=== PATIENT | female | born 1965 | race Caucasian/White ===

== ENCOUNTER 2019-05-08 01:01 | Inpatient (IN) | payer BC, OTHER ==
[2019-05-08] MEDS: SOD CHLORIDE 0.9% 1,000 ML IV ×3 (02:30→15:29)
[2019-05-08] MEDS: ONDANSETRON 4 MG INJ IV ×3 (02:33→23:57)
[2019-05-08] MEDS: KETOROLAC 15 MG INJ IV (02:33)
[2019-05-08 02:41] LABS: ADD MAN DIFF? NO
[2019-05-08 02:45] LABS: WHITE BLOOD COUNT 9.6 10^3/ul (4.8-10.8)
[2019-05-08 02:45] LABS: BASOPHILS % 0.2 % (0.0-2.0); EOSINOPHILS # 0.1 10^3/ul (0.0-0.5); EOSINOPHILS % 0.8 % (0.0-7.0); HEMATOCRIT 39.2 % (37.0-47.0); HEMOGLOBIN 12.8 g/dl (12.0-16.0); LYMPHOCYTES # 1.9 10^3/ul (0.8-2.9); MEAN CORPUSCULAR HEMOGLOBIN 31.6 pg (29.0-33.0); MEAN CORPUSCULAR HGB CONC 32.7 g/dl (32.0-37.0); MEAN CORPUSCULAR VOLUME 96.8 fl (82.0-101.0); MEAN PLATELET VOLUME 8.6 fl (7.4-10.4); MONOCYTE # 0.4 10^3/ul (0.3-0.9); MONOCYTES % 4.2 % (0.0-11.0); NEUTROPHIL # 7.1 10^3/ul (1.6-7.5); NEUTROPHILS % 74.4 % (39.0-77.0); PLATELET COUNT 271 10^3/UL (140-415); RED BLOOD COUNT 4.05 10^6/ul (4.20-5.40); RED CELL DISTRIBUTION WIDTH 13.4 % (11.5-14.5)
[2019-05-08 03:00] LABS: ALANINE AMINOTRANSFERASE 21 IU/L (13-69); ALBUMIN 4.5 g/dl (3.3-4.9); ALBUMIN/GLOBULIN RATIO 1.32; ALKALINE PHOSPHATASE 91 IU/L (42-121); ANION GAP 9 (5-13); ASPARTATE AMINO TRANSFERASE 28 IU/L (15-46); BILIRUBIN,INDIRECT 0.2 mg/dl (0-1.1); BILIRUBIN,TOTAL 0.2 mg/dl (0.2-1.3); BLOOD UREA NITROGEN 28 mg/dl (7-20); CALCIUM 9.4 mg/dl (8.4-10.2); CARBON DIOXIDE 25 mmol/L (21-31); CHLORIDE 107 mmol/L (97-110); Estimated GFR > 60 mL/min (>60); GLUCOSE 125 mg/dl (70-220); LIPASE 134 U/L (23-300); POTASSIUM 3.5 mmol/L (3.5-5.1); SODIUM 141 mmol/L (135-144); TOTAL PROTEIN 7.9 g/dl (6.1-8.1)
[2019-05-08 03:05] LABS: ADD UMIC YES; UR ASCORBIC ACID NEGATIVE (NEGATIVE); UR BACTERIA FEW /HPF (NONE SEEN); UR BILIRUBIN (Dip) NEGATIVE (NEGATIVE); UR BLOOD (Dip) 3+ mg/dL (NEGATIVE); UR BUDDING YEAST FEW /HPF (NONE SEEN); UR CLARITY CLOUDY (CLEAR); UR COLOR YELLOW (YELLOW); UR GLUCOSE (Dip) NEGATIVE (NEGATIVE); UR KETONES (Dip) NEGATIVE (NEGATIVE); UR LEUKOCYTE ESTERASE (Dip) 1+ Leu/ul (NEGATIVE); UR MUCUS FEW /HPF (NONE SEEN); UR NITRITE (Dip) NEGATIVE (NEGATIVE); UR RBC > 182 /HPF (0-5); UR SPECIFIC GRAVITY (Dip) 1.026 (1.003-1.030); UR SQUAMOUS EPITHELIAL CELL FEW /HPF (FEW); UR TOTAL PROTEIN (Dip) 1+ mg/dl (NEGATIVE); UR UROBILINOGEN (Dip) NEGATIVE (NEGATIVE); UR WBC 6 /HPF (0-5)
[2019-05-08] MEDS: CEFTRIAXONE 1 GM/50 ML (PMX) 50 ML IVPB ×2 (03:44→09:13)
[2019-05-08] MEDS: TAMSULOSIN (SR) 0.4 MG CAP PO (06:46)
[2019-05-08] MEDS ORDERED: ALBUTEROL/IPRATROPIUM (NEB) 3 ML AMP HHN (07:00)
[2019-05-08] MEDS ORDERED: ACETAMINOPHEN 325 MG TAB PO (07:00)
[2019-05-08] MEDS ORDERED: HYDROCODONE/APAP (5/325) TAB PO (07:00)
[2019-05-08] MEDS ORDERED: NACL 0.9% 3 ML SYG IV (07:00)
[2019-05-08] MEDS: HYDROCODONE/APAP (5/325) TAB PO (08:09)
[2019-05-08] MEDS: MAGNESIUM HYDROXIDE 30ML CUP PO (09:13)
[2019-05-08] MEDS: morphine 2 MG INJ IV ×3 (11:50→21:31)
[2019-05-08] MEDS: HYDROmorphONE 1 MG/ML SYG IV ×2 (18:02→23:57)
[2019-05-09 04:54] LABS: ADD MAN DIFF? NO
[2019-05-09 05:04] LABS: BASOPHILS % 0.2 % (0.0-2.0); EOSINOPHILS % 0.3 % (0.0-7.0); HEMATOCRIT 37.9 % (37.0-47.0); HEMOGLOBIN 12.2 g/dl (12.0-16.0); LYMPHOCYTES # 1.7 10^3/ul (0.8-2.9); LYMPHOCYTES % 17.4 % (15.0-51.0); MEAN CORPUSCULAR HEMOGLOBIN 31.6 pg (29.0-33.0); MEAN CORPUSCULAR HGB CONC 32.2 g/dl (32.0-37.0); MEAN CORPUSCULAR VOLUME 98.2 fl (82.0-101.0); MEAN PLATELET VOLUME 8.5 fl (7.4-10.4); MONOCYTE # 0.6 10^3/ul (0.3-0.9); MONOCYTES % 6.3 % (0.0-11.0); NEUTROPHIL # 7.2 10^3/ul (1.6-7.5); NEUTROPHILS % 75.5 % (39.0-77.0); PLATELET COUNT 246 10^3/UL (140-415); RED BLOOD COUNT 3.86 10^6/ul (4.20-5.40); RED CELL DISTRIBUTION WIDTH 14.1 % (11.5-14.5)
[2019-05-09 05:04] LABS: WHITE BLOOD COUNT 9.5 10^3/ul (4.8-10.8)
[2019-05-09 05:27] LABS: ALANINE AMINOTRANSFERASE 31 IU/L (13-69); ALBUMIN 3.5 g/dl (3.3-4.9); ALBUMIN/GLOBULIN RATIO 1.09; ALKALINE PHOSPHATASE 72 IU/L (42-121); ANION GAP 6 (5-13); ASPARTATE AMINO TRANSFERASE 28 IU/L (15-46); BILIRUBIN,INDIRECT 0.3 mg/dl (0-1.1); BILIRUBIN,TOTAL 0.3 mg/dl (0.2-1.3); BLOOD UREA NITROGEN 13 mg/dl (7-20); CALCIUM 8.9 mg/dl (8.4-10.2); CARBON DIOXIDE 26 mmol/L (21-31); CHLORIDE 107 mmol/L (97-110); CREATININE 0.62 mg/dl (0.44-1.00); Estimated GFR > 60 mL/min (>60); GLUCOSE 109 mg/dl (70-220); MAGNESIUM 2.1 mg/dl (1.7-2.5); PHOSPHORUS 3.7 mg/dl (2.5-4.9); SODIUM 139 mmol/L (135-144); TOTAL PROTEIN 6.7 g/dl (6.1-8.1)
[2019-05-09] MEDS: HYDROmorphONE 1 MG/ML SYG IV ×2 (06:12→13:07)
[2019-05-09] MEDS: ONDANSETRON 4 MG INJ IV ×2 (06:12→16:22)
[2019-05-09] MEDS: morphine 2 MG INJ IV ×2 (08:27→16:19)
[2019-05-09] MEDS: SOD CHLORIDE 0.9% 1,000 ML IV ×3 (08:41→16:59)
[2019-05-09] MEDS: CEFTRIAXONE 1 GM/50 ML (PMX) 50 ML IVPB (08:41)
[2019-05-09] MEDS: HYDROCODONE/APAP (5/325) TAB PO (17:55)
[2019-05-10] MEDS: SOD CHLORIDE 0.9% 1,000 ML IV ×4 (00:16→23:50)
[2019-05-10] MEDS: morphine 2 MG INJ IV (00:16)
[2019-05-10] MEDS: HYDROmorphONE 1 MG/ML SYG IV (05:41)
[2019-05-10] MEDS: CEFTRIAXONE 1 GM/50 ML (PMX) 50 ML IVPB (08:29)
[2019-05-10] MEDS: LACTULOSE 30ML CUP PO (10:18)
[2019-05-10] MEDS: POLYETHYLENE GLYCOL 17 GM PACKET PO (10:18)
[2019-05-11] MEDS: SOD CHLORIDE 0.9% 1,000 ML IV (04:07)
[2019-05-11] MEDS: CEFTRIAXONE 1 GM/50 ML (PMX) 50 ML IVPB (08:08)
[2019-05-11] MEDS: POLYETHYLENE GLYCOL 17 GM PACKET PO (08:08)
[2019-05-11] MEDS ORDERED: KETOROLAC 30 MG INJ IV (10:30)
[2019-05-11] MEDS: NA PHOSPHATE/BIPHOS 133 ML ENEMA PR (11:45)
== END 2019-05-11 20:16 | disposition home or self-care (01) | DRG 690 ==
LOC: E/R 01:01 → MS1 04:30
DX: N13.6 Pyonephrosis (principal); K76.0 Fatty (change of) liver, not elsewhere classified; K59.00 Constipation, unspecified
CPT/HCPCS: 36415; 74018; 74176; 80053; 81001; 83690; 83735; 84100; 85025; 87086; 96374; 96375; 96376; 99285-25